=== PATIENT | male | born 1955 | race Caucasian/White ===

== ENCOUNTER → 2018-10-30 10:41 | Outpatient (CLI) | payer BC ==
[2016-04-01 12:05] VITALS: BMI 40.3
[~2018-10-30 10:41] MED LIST: ATIVAN1 MG PO; BENICAR40 MG PO; BYSTOLIC5 MG PO; CYMBALTA60 MG PO; DESERYL100 MG PO; FLOMAX0.4 MG PO; LAMICTAL100 MG PO; LOVAZA1 G PO; NEXIUM40 MG PO; NIASPAN1000 MG PO; SEROQUEL300 MG PO; SYNTHROID175 MCG PO; ZANAFLEX4 MG PO; ZOCOR20 MG PO; ZYRTEC10 MG PO
== END | disposition home or self-care (01) ==
LOC: D.US 10:41
PROVIDERS: ATTEND Internal Medicine Interventional Cardiology
DX: I65.23 Occlusion and stenosis of bilateral carotid arteries (principal)

== ENCOUNTER → 2019-11-19 09:37 | Outpatient (CLI) | payer BC ==
[2016-04-01 12:05] VITALS: BMI 40.3
--- NOTE | 2019-11-22 11:53 | EC ---
PATIENT:HEIDI LEWIS DATE OF SERVICE: 11/19/19 SEX: M MEDICAL RECORD: [id number] DATE OF : [birth year] [facility] AGE OF PATIENT: 64 ADMISSION DATE: 11/19/19 REFERRING PHYSICIAN: INTERPRETING PHYSICIAN: DEMETRIUS MENDOZA MD ECHOCARDIOGRAM REPORT ECHO CHARGES 4 ECHO COMPLETE Date: 11/19/19 CLINICAL DIAGNOSIS: CAD/HTN ECHOCARDIOGRAPHIC MEASUREMENTS (adult normal given) AC root (d.<3.7cm) 4.4 cm LV Septum d (<1.2 cm> 1.5 cm Valve Excursion 2.1 cm LV Septum (systole) 1.7 cm Left Atria (s.<4.0cm> 3.7 cm LVPW d(<1.2cm) 1.7 cm RV (d.<2.3cm) 2.7 cm LVPW (sytole) 2.0 cm LV diastole(<5.6CM) 4.3 cm MV E-F(>70mm/sec) cm LV systole 2.8 cm LVOT Diameter 2.0 cm MV exc.(>10mm) 1.5 cm Est.ejection fraction (50-75%) % DOPPLER: LVIT cm/sec A 640 cm/sec E 70.0 cm/sec LA cm/sec RVSP 21 mmHg LVOT 101 cm/sec AOP1/2T m/s Asc. Ao 115 cm/sec RVOT 65 cm/sec RA cm/sec PA 139 cm/sec AV Gradient Peak 5.32 mmHg AV Mean 2.69 mmHg AV Area 2.8 cm MV Gradient Peak 2.82 mmHg MV Mean 1.01 mmHg MV Area cm COMMENTS: Computed Tomography Technologist: 2 RASHAD VIRAMONTES Manager Development: 3 Dr. Joyce TAPE# PACS Pericardial Effusion N DATE OF SERVICE: Adequate 2-D echo, color-flow imaging, spectral Doppler and M-Mode. LVH is present. LV internal dimensions are normal. Wall motion is normal. EF is greater than or equal to 55%. Aortic valve is tricuspid. No evidence of stenosis by Doppler interrogation. Left atrium is normal at 3.7 cm. Mitral valve shows no prolapse. Trivial MR. Right-sided chamber are grossly normal. Mild TR. ECHOCARDIOGRAM REPORT [id number] HEIDI LEWIS TRANSINT:[id number] Voice Confirmation ID: [id number] DOCUMENT ID: [id number] DEMETRIUS MENDOZA MD at 1153 CC: [id number] DICTATION DATE: 11/20/19 1340 PET RESORT CONCIERGE: 11/20/19 1355 DEP CLI 11/19/19 [place] [id number] [place] [id number]
== END | disposition home or self-care (01) ==
LOC: D.HCCECHO 09:30
PROVIDERS: ATTEND Internal Medicine Interventional Cardiology
DX: I25.10 Atherosclerotic heart disease of native coronary artery without angina pectoris (principal)

== ENCOUNTER → 2020-11-21 09:28 | Outpatient (CLI) | payer BC ==
[2016-04-01 12:05] VITALS: BMI 40.3
--- NOTE | ~2020-11-21 | EC ---
PATIENT:HEIDI LEWIS DATE OF SERVICE: 11/21/20 SEX: M MEDICAL RECORD: [id number] DATE OF : 57 [facility] AGE OF PATIENT: 65 ADMISSION DATE: 11/21/20 REFERRING PHYSICIAN: INTERPRETING PHYSICIAN: DEMETRIUS MENDOZA MD ECHOCARDIOGRAM REPORT ECHO CHARGES 4 ECHO COMPLETE Date: 11/21/20 CLINICAL DIAGNOSIS: CAD/ASSESS EF AND LVH ECHOCARDIOGRAPHIC MEASUREMENTS (adult normal given) AC root (d.<3.7cm) 4.6 cm LV Septum d (<1.2 cm> 1.4 cm Valve Excursion 1.8 cm LV Septum (systole) 1.8 cm Left Atria (s.<4.0cm> 4.0 cm LVPW d(<1.2cm) 1.5 cm RV (d.<2.3cm) 3.1 cm LVPW (sytole) 2.0 cm LV diastole(<5.6CM) 4.6 cm MV E-F(>70mm/sec) cm LV systole 2.9 cm LVOT Diameter 1.8 cm MV exc.(>10mm) 0.80 cm Est.ejection fraction (50-75%) % DOPPLER: LVIT cm/sec A 80.0 cm/sec E 59.0 cm/sec LA cm/sec RVSP 23 mmHg LVOT 100 cm/sec AOP1/2T m/s Asc. Ao 119 cm/sec RVOT 55 cm/sec RA cm/sec PA 157 cm/sec AV Gradient Peak 5.663mmHg AV Mean 3.03 mmHg AV Area 2.4 cm MV Gradient Peak 3.13 mmHg MV Mean 1.29 mmHg MV Area cm COMMENTS: Sanforizer: 2 RASHAD VIRAMONTES Golf Cart Attendant: 3 Dr. Joyce TAPE# PACS Pericardial Effusion N DATE OF SERVICE: Adequate 2D, color-flow imaging, spectral Doppler, and M-Mode. LVH is present. LV internal dimension is normal. Wall motion is normal. EF is greater than or equal to 55%. Aortic valve is tricuspid. No evidence of stenosis by Doppler interrogation. Left atrium is normal at 4.0 cm. Mitral valve shows no prolapse. Trivial MR. Right side is grossly normal. Trivial TR. ECHOCARDIOGRAM REPORT [id number] HEIDI LEWSI TRANSINT:[id number] Voice Confirmation ID: [id number] DOCUMENT ID: [id number] DEMETRIUS MENDOZA MD CC: [id number] DICTATION DATE: 11/24/20 112 CHLORINATOR: 11/24/202120 DEP CLI 11/21/20 [place] [id number]
== END | disposition home or self-care (01) ==
LOC: D.HCCECHO 09:28
PROVIDERS: ATTEND Internal Medicine Interventional Cardiology
DX: I25.10 Atherosclerotic heart disease of native coronary artery without angina pectoris (principal)